=== PATIENT | male | born 1940 | race Caucasian/White ===

== ENCOUNTER 2018-05-30 21:28 | Inpatient (IN) | payer MEDICARE ==
[~2018-05-30 21:28] MED LIST: ISOVUE-370 76%-LOCM 1 ML ONE
[2018-05-30] MEDS ORDERED: niCARdipine 20MG In NaCl 20 MG/200 ML BAG ONE (21:54)
[2018-05-30 22:07] LABS: #Basophils 0.1 thou/uL (0.0-0.2); #Monocytes 0.6 thou/uL (0.11-0.59); #Neutrophils 4.5 thou/uL (1.40-6.50); %Basophils 0.8 % (0.0-1.0); %Eosinophils 0.3 % (0.0-10.0); %Lymphocytes 28.1 % (21.0-51.0); %Neutrophils 62.7 % (42.0-75.0); Hemoglobin 13.6 g/dL (14.0-18.0); Mean Corpuscular HGB CONC 34.4 g/dL (32.0-36.0); Mean Corpuscular Hemoglobin 33.5 pg (27.0-31.0); Mean Corpuscular Volume 97.4 fL (78.0-98.0); Mean Platelet Volume 8.3 fL (7.4-10.4); Platelet Count 163 thou/uL (130-400); RBC Distribution Width 12.1 % (11.5-14.5); Red Blood Cell (RBC) Count 4.07 mill/uL (4.70-6.10); White Blood Cell (WBC) Count 7.1 thou/uL (4.8-10.8)
[2018-05-30 22:13] LABS: INR-International Normal Ratio 1.1; Prothrombin Time 14.4 SEC (12.0-14.7)
[2018-05-30 22:14] LABS: PTT 30.5 SEC (22.9-36.1)
[2018-05-30 22:21] LABS: ALT (SGPT) 20 U/L (8-55); AST (SGOT) 29 U/L (5-34); Albumin 3.4 g/dL (3.4-4.8); Alkaline Phosphatase 57 U/L (40-150); Anion Gap 14 mmol/L (10-20); BUN (Urea Nitrogen) 25 mg/dL (8.4-25.7); Bilirubin, Total 1.2 mg/dL (0.2-1.2); CK (CPK) 466 U/L (30-200); Calc. Creatinine Clearance 0 mL/min (70-130); Calcium 8.8 mg/dL (7.8-10.44); Carbon Dioxide 20 mmol/L (23-31); Chloride 105 mmol/L (98-107); Estimated GFR-MDRD 55; Globulin 5.4 g/dL (2.4-3.5); Glucose 95 mg/dL (83-110); Potassium 4.1 mmol/L (3.5-5.1); Protein, Total 8.8 g/dL (5.8-8.1); Sodium 135 mmol/L (136-145)
[2018-05-30 22:24] LABS: Troponin I Less than 0.010 ng/mL (< 0.028)
[2018-05-30 22:27] LABS: CKMB 8.5 ng/mL (0-6.6)
[2018-05-30] MEDS ORDERED: Ondansetron HCl/PF 4 MG/2 ML Vial ONE (22:37)
--- NOTE | 2018-05-30 22:46 | CT ---
CT BRAIN WITHOUT CONTRAST CTA BRAIN WITH IV CONTRAST AND 3D POSTPROCESSING CTA NECK WITH IV CONTRAST AND 3D POSTPROCESSIN05/30/18 HISTORY: 78-year-old male with left sided weakness. FINDINGS: There are patchy areas of decreased attenuation in the periventricular white matter consistent with c hronic small vessel ischemic disease. The ventricular size is appropriate and the basilar cisterns pa tent. There is a dense right MCA sign on the noncontrasted study. No acute hemorrhage, midline shift, or abnormal extra-axial fluid collections are seen. There is occlusion of the right internal carotid artery at its origin also involving the intracranial course and the M1 segment of the right MCA. There is decreased blood flow in the right MCA territory indicative of an impending acute infarction. There is severe stenosis in the proximal left ICA close to the origin. Good flow is seen in the verte bral arteries and the basilar artery. A dominant right vertebral artery is present. IMPRESSION: 1. Right ICA and M1 segment of MCA occlusion with dense right MCA sign suspicious for an acute r ight MCA infarction. 2. High grade stenosis in the proximal left ICA. Discussed over the telephone with ER physician, Dr. Larry Leyva at 9:[address] Amari arevalo at 10:05 p.m. POS: [facility]
[2018-05-30] MEDS ORDERED: Propofol 1,000 MG/100 ML VIAL IV ONE (23:14)
--- NOTE | 2018-05-30 23:30 | CT ---
CT BRAIN WITHOUT CONTRAST: 05/30/18 HISTORY: CVA, post TPA, worsening headache. FINDINGS: There is intravascular contrast from recent administration. No interval development of intracranial h emorrhage is seen since earlier exam of 9:35 p.m. from the same date. No midline shift or abnormal ex tra-axial fluid collections are seen. No acute infarction is identified. IMPRESSION: No evidence of intracranial hemorrhage post TPA. POS: [facility]
[2018-05-30 23:46] LABS: Base Excess-Venous -0.9 mmol/L (0 (+/- 2.5)); Bicarbonate (HCO3v) 26.2 mmol/L (1.0-85.0); CO2 Tension (PvCO2) 51.7 mmHg (41.0-51.0); Calcium, Ionized 1.14 mmol/L (1.12-1.32); Hemoglobin - Calc 15.4 g/dL (12.0-18.0); Lactate 2.03 mmol/L (0.50-2.20); O2 Tension (PvO2) 63.5 mmHg (35.0-45.0); Potassium 5.2 mmol/L (3.4-4.7); T. Carbon Dioxide 27.8 mmol/L (1.0-85.0); pH (Venous) 7.313 (7.35-7.45); vO2 Saturation-calc 89.4 % (94-98)
--- NOTE | 2018-05-30 23:55 | RAD ---
PORTABLE CHEST ONE VIEW: 05/30/18 at 10:50 p.m. HISTORY: Respiratory failure. FINDINGS/IMPRESSION: There is an endotracheal tube with tip just below the level of the clavicular heads. The heart size i s normal. The lungs are well expanded without lobar consolidation, pneumothoraces or pleural effusion s. POS: [facility]
[2018-05-31] MEDS ORDERED: Fentanyl 100 MCG/2 ML VIAL ONE (00:15)
[2018-05-31] MEDS ORDERED: fentaNYL Citrate/PF 2,000 MCG in Sodium Chloride 0.9% 60 ML IV SCH (00:17)
[2018-05-31] MEDS ORDERED: Propofol 1,000 MG/100 ML VIAL IV ONE (03:55)
[2018-05-31] MEDS ORDERED: Lacri-Lube Opth Oint 3.5 GM TUBE EA EYE PRN (13:31)
[2018-05-31] MEDS ORDERED: Acetaminophen 650 MG Suppository PR PRN (15:37)
[2018-05-31] MEDS ORDERED: Acetaminophen 1,000 MG in Premix Bag 1 BAG IVPB SCH (15:45)
[2018-05-31] MEDS: Piperacillin/Tazobactam 3.375 GM in Sodium Chloride 0.9% 100 ML IVPB SCH (18:21)
--- NOTE | 2018-05-31 18:29 | PDOC.PULCN ---
<Michael Ladd - Last Filed: 05/31/18 18:25> Pulmonology Consult: HPI - Date of Consult Date: 05/31/18 Time: 09:45 - Consult Details Reason for Consult: Respiratory failure, CVA - History of Present Illness HPI: KAILYN FISCHER is a 78 year-old M 78 M w/o known PMH presents for acute onset left sided motor deficit. Pt was found to have stroke on initial CT imaging and no evidence of hemorrhage. Was given TPA in ED. He was also unable to protect airway and there was concern for aspiration pna and was subsequently intubated, started on [facility] ventilation and transfered to ICU. Pulmonology Consult: ROS - Review of Systems ROS unobtainable: due to endotracheal tube Pulmonology Consult: PMH Past Medical History: Unknown. - Social History Smoking Status: Unknown if ever smoked Pulmonology Consult: Meds - Medications MAR Reviewed: Yes Medications: Current Medications Acetaminophen (Tylenol) 650 mg [place] Q4H PRN PRN Reason: Headache/Fever or Pain Albuterol/Ipratropium (Duoneb) 3 ml NEB [id number] PRN PRN Reason: SOB &/or Wheezing Famotidine (Pepcid) 20 mg PER TUBE BID CARRIE Piperacillin Sod/Tazobactam (Sod 3.375 gm/ Sodium Chloride) 100 mls @ 200 mls/ hr IVPB Q6HR CARRIE Stop: 18 18:01 Last Admin: 05/31/18 18:21 Dose: 100 mls Acetaminophen 1,000 mg/ Device 100 mls @ 400 mls/hr IVPB NOW CARRIE Stop: 05/31/18 21:00 Last Admin: 05/31/18 16:21 Dose: 100 mls Mineral Oil/White Petrolatum (Lacri-Lube Ointment) 0 gm EA EYE PRN PRN PRN Reason: Dry Eyes - Allergies Allergies/Adverse Reactions: Allergies Allergy/AdvReac Type Severity Reaction Status Date / Time codeine Allergy Verified 05/31/18 00:17 Pulmonology Consult: PE - Physical Exam Deviation from normal: Intubated, unresponsive, off sedation HEENT: moist MMs, sclera anicteric Deviation from normal: Intubated, pupils sluggish but reactive and symmettric b/ l Neck: no JVD Cardiovascular: RRR, no significant murmur, no rub Respiratory: clear to auscultation bilaterally Gastrointestinal: soft, non-tender, no distention, positive bowel sounds Musculoskeletal: no edema, pulses present Deviation from normal: upward gaze preference, abnormal babinski LLE, minimal withdraw from pain Lymphatic: no nodes Deviation from normal: Unresponsive Skin: no rash, normal turgor, cap refill <2 seconds Pulmonology Consult: Results - Labs Result Diagrams: 05/30/18 21:59 05/30/18 21:59 - ABG Interpretation Attestation: I reviewed and interpreted this ABG. ABG Results: POC Bicarbonate Calc 26.2 mmol/L (1.0-85.0) 05/30/18 23:43 Interpretation: respiratory acidosis Pulmonology Consult: A/P - Problem (1) CVA (cerebral vascular accident) Current Visit: Yes Code(s): I63.9 - CEREBRAL INFARCTION, UNSPECIFIED Status : Acute (2) Respiratory failure requiring intubation Current Visit: Yes Code(s): J96.90 - RESPIRATORY FAILURE, UNSP, UNSP W HYPOXIA OR HYPERCAPNIA Status: Acute (3) CAP (community acquired pneumonia) Current Visit: Yes Code(s): J18.9 - PNEUMONIA, UNSPECIFIED ORGANISM Status: Acute - Time Time: 50% of the time was spent in coordination of care (as documented) at patient's floor/unit and/or counseling patient. Time with Patient: greater than 50 minutes - Plan Plan: 1) CVA: s/p TPA administration - pt has had worsening of neurological status since administration, cont neuro checks, consider repeat imaging - Neurosurg consulted - rare spont breathing off sedation - pt to remain off sedation, serial neuro checks 2) Respiratory failure: - 2/2 cva w/ concern for aspiration vs cap - IV zosyn ordered, cont - cont mechanical ventilation, pt to remain off sedation, serial neuro checks 3) CAP: vs aspiration - cont zosyn - cxr negative for consolidation <Neal Suarez - Last Filed: 06/05/18 08:33> Pulmonology Consult: HPI - History of Present Illness HPI: ROSITAFIFIADRIAYAZ RUTH is a 78 year-old M Pulmonology Consult: Meds - Medications Medications: Current Medications Acetaminophen (Tylenol) 325 mg [place] Q4H PRN PRN Reason: .FEVER Last Admin: 06/05/18 05:34 Dose: 325 mg Lorazepam (Ativan) 2 mg SLOW IVP Q15MIN PRN PRN Reason: Anxiety/Agitation Last Admin: 06/04/18 18:35 Dose: 2 mg Morphine Sulfate (Morphine) 2 mg SLOW IVP Q15MIN PRN PRN Reason: sob Last Admin: 06/05/18 08:25 Dose: 2 mg Pulmonology Consult: Results - Labs Result Diagrams: 06/02/18 03:27 06/02/18 03:27 - ABG Interpretation ABG Results: POC Bicarbonate Calc 26.2 mmol/L (1.0-85.0) 05/30/18 23:43 Pulmonology Consult: A/P - Time Time: 50% of the time was spent in coordination of care (as documented) at patient's floor/unit and/or counseling patient. Attending Addendum - Attending Addendum Date/Time: 05/31/18 1400 I personally evaluated the patient and discussed the management with Dr. Ladd. I agree with the History, Examination, Assessment and Plan documented above with any addition or exceptions noted below. Critical care time: 30 minutes.
[2018-05-31] MEDS: Sodium Chloride 0.9% 1,000 ML IV SCH (20:30)
[2018-05-31] MEDS ORDERED: Famotidine 40 MG/5 ML Oral Suspension PER TUBE SCH (21:00)
[2018-05-31] MEDS: Famotidine 20 MG TAB PER TUBE SCH (22:52)
[2018-05-31] MEDS ORDERED: Lorazepam 2 MG/ML VIAL SLOW IVP SCH (23:45)
[2018-05-31] MEDS ORDERED: levETIRAcetam In NaCl (Iso-Os) 1,000 MG in Premix Bag 1 BAG IVPB SCH (23:45)
[2018-05-31] MEDS ORDERED: hydrALAZINE 20 MG/ML VIAL SLOW IVP PRN (23:57)
[2018-06-01] MEDS: Piperacillin/Tazobactam 3.375 GM in Sodium Chloride 0.9% 100 ML IVPB SCH ×5 (00:09→23:29)
[2018-06-01] MEDS ORDERED: niCARdipine HCl 25 MG in Sodium Chloride 0.9% 250 ML 240 ML IVPB SCH (02:45)
[2018-06-01 08:21] LABS: ALT (SGPT) 21 U/L (8-55); AST (SGOT) 46 U/L (5-34); Albumin 3.2 g/dL (3.4-4.8); Alkaline Phosphatase 49 U/L (40-150); Anion Gap 12 mmol/L (10-20); BUN (Urea Nitrogen) 25 mg/dL (8.4-25.7); Bilirubin, Total 2.1 mg/dL (0.2-1.2); Calc. Creatinine Clearance 0 mL/min (70-130); Calcium 8.3 mg/dL (7.8-10.44); Carbon Dioxide 21 mmol/L (23-31); Chloride 109 mmol/L (98-107); Estimated GFR-MDRD 50; Globulin 4.8 g/dL (2.4-3.5); Glucose 115 mg/dL (83-110); Potassium 4.2 mmol/L (3.5-5.1); Sodium 138 mmol/L (136-145)
[2018-06-01 09:04] LABS: Band 6 % (5-11); Bite Cells SLIGHT = 2-5 cells (100X) (0-1/hpf); Hemoglobin 12.5 g/dL (14.0-18.0); Lymphocytes 13 % (21-51); MDiff Complete? YES; Mean Corpuscular HGB CONC 33.2 g/dL (32.0-36.0); Mean Corpuscular Hemoglobin 32.8 pg (27.0-31.0); Mean Corpuscular Volume 98.7 fL (78.0-98.0); Mean Platelet Volume 8.2 fL (7.4-10.4); Monocytes 5 % (0-10); Neutrophil 76 % (42-75); Platelet Count 169 thou/uL (130-400); RBC Distribution Width 12.2 % (11.5-14.5); Red Blood Cell (RBC) Count 3.82 mill/uL (4.70-6.10); White Blood Cell (WBC) Count 15.8 thou/uL (4.8-10.8)
[2018-06-01] MEDS: Famotidine 20 MG TAB PER TUBE SCH ×2 (09:22→21:53)
[2018-06-01] MEDS: Acetaminophen 325 MG/10.15 ML UDCUP PO SCH ×3 (11:00→21:55)
--- NOTE | 2018-06-01 11:06 | PRG ---
DATE OF SERVICE: 06/01/2018 SERVICE: Pulmonary Medicine. INTERVAL HISTORY: The patient is doing okay. Overnight, he had a shaking spell. There was fear that he could have represented seizure activity. As such , he was put on some antiepileptic drugs. He cannot provide any additional elements of the history. That being said, he is starting to spontaneously move the left leg. He has been moving the right leg spontaneously. He actually follows some simple commands with the right upper extremity. PHYSICAL EXAMINATION: VITAL SIGNS: T-max 100.4, pulse 70, blood pressure 140/53, respirations 24, saturation 93% on 27% FiO2 and a PEEP of 5. GENERAL: The patient is encephalopathic. HEENT: Normocephalic, atraumatic. Sclerae are white, conjunctivae pink. Oral mucosa is moist without lesions. LUNGS: Decent air entry. There is a prolonged expiratory phase, but no wheezing. No rhonchi or crackles are appreciated. HEART: Normal rate, regular. ABDOMEN: Soft, nontender and nondistended. Bowel sounds are positive. MUSCULOSKELETAL: No cyanosis or clubbing. There is no pitting in the bilateral lower extremities. NEUROLOGIC: He is spontaneously moving the right upper and lower extremities. He is following commands with the right upper extremity. He does not have a gag , but demonstrates an excellent cough with deep suctioning and is breathing on pressure support ventilation very comfortably. He has upgoing Babinski with a left lower extremity and does not withdraw from the left upper extremity. LABORATORY DATA: WBC 5.8, hemoglobin 12.5, platelets 169,000. INR 1.1. PH 7.31, pCO2 52 and pO2 63. Creatinine 1.36 and gently up trending. Basic metabolic profile and liver function studies are otherwise unremarkable. TSH falls within the normal limits. ASSESSMENT: 1. CVA of the right MCA. 2. Acute hypoxic respiratory failure. 3. Community acquired pneumonia secondary to overt aspiration. DISCUSSION AND PLAN: We will continue to hold sedation. The patient will stay on pressure support ventilation. Agree with antiepileptic drugs. I am going to schedule Tylenol, place OG and initiate tube feeds and change most of his medications over to p.o. provided that he tolerates a diet. Hopefully, today is the worst day from a neurologic standpoint and he will start to make a little bit more recovery through time. The patient's family was updated at bedside. CRITICAL CARE TIME: 30 minutes. JACOB
[2018-06-01] MEDS: Sodium Chloride 0.45% 1,000 ML IV SCH (12:01)
--- NOTE | 2018-06-01 13:58 | PDOC.PN ---
- Subjective Encounter Start Date: 06/01/18 Encounter Start Time: 13:45 Intubated. - Objective Vital Signs & Weight: Vital Signs (12 hours) Temp Pulse Resp Pulse Ox 06/01/18 12:00 20 06/01/18 10:45 70 06/01/18 08:00 100.1 F H 06/01/18 07:50 93 06/01/18 07:44 92 L 06/01/18 06:00 100.4 F H 06/01/18 04:00 21 H 06/01/18 02:05 79 Weight Admit Weight 179 lb 1.6 oz Weight 179 lb 1.6 oz Most Recent Monitor Data Heart Rate from ECG 71 NIBP 130/71 NIBP BP-Mean 90 Respiration from ECG 24 SpO2 95 I&O: 05/31/18 06/01/18 06/02/18 06:59 06:59 06:59 Intake Total 1942 Output Total 1650 340 Balance 292 -340 Result Diagrams: 06/01/18 07:12 06/01/18 07:12 Phys Exam - Physical Examination Constitutional: NAD Scattered rales, worse on the left. Cardiovascular: RRR, no significant murmur Gastrointestinal: soft, no distention, positive bowel sounds Musculoskeletal: no edema Moves right side well. Minimal wiggle of toes on left. Otherwise dense hemiplegia. Dx/Plan (1) Aspiration pneumonia Code(s): J69.0 - PNEUMONITIS DUE TO INHALATION OF FOOD AND VOMIT Status: Acute Comment: Zosyn. Witness aspiration with N/V after TPA administered. (2) CVA (cerebral vascular accident) Code(s): I63.9 - CEREBRAL INFARCTION, UNSPECIFIED Status: Acute Comment: Was not a candidate for mechanical extraction of clot. Had tPA. Still has some dense left hemiplegia. Will be able to better assess his residual defects when extubated. Moving right side well. Following commands. (3) Respiratory failure requiring intubation Code(s): J96.90 - RESPIRATORY FAILURE, UNSP, UNSP W HYPOXIA OR HYPERCAPNIA Status: Acute Comment: Pulmonology following. - Plan * Presented with CVA which was not amenable to clot extraction. Had tPA. Subsequent N/V with hematemesis and aspiration and respiratory failure. Pulm/ CC managing vent. Continue abx, starting nutrition. .
[2018-06-01] MEDS: Sodium Chloride 0.9% 1,000 ML IV SCH (23:31)
[2018-06-02 04:53] LABS: #Lymphocytes 1.6 thou/uL (1.20-3.40); #Monocytes 0.9 thou/uL (0.11-0.59); #Neutrophils 9.6 thou/uL (1.40-6.50); %Basophils 0.2 % (0.0-1.0); %Eosinophils 0.2 % (0.0-10.0); %Lymphocytes 13.3 % (21.0-51.0); %Monocytes 7.3 % (0.0-10.0); %Neutrophils 79.1 % (42.0-75.0); Hemoglobin 11.2 g/dL (14.0-18.0); Mean Corpuscular Hemoglobin 33.4 pg (27.0-31.0); Mean Corpuscular Volume 98.3 fL (78.0-98.0); Mean Platelet Volume 8.6 fL (7.4-10.4); Platelet Count 143 thou/uL (130-400); Red Blood Cell (RBC) Count 3.36 mill/uL (4.70-6.10); White Blood Cell (WBC) Count 12.1 thou/uL (4.8-10.8)
[2018-06-02 05:23] LABS: ALT (SGPT) 18 U/L (8-55); AST (SGOT) 47 U/L (5-34); Alkaline Phosphatase 56 U/L (40-150); Anion Gap 10 mmol/L (10-20); BUN (Urea Nitrogen) 25 mg/dL (8.4-25.7); Bilirubin, Total 1.8 mg/dL (0.2-1.2); Calc. Creatinine Clearance 53 mL/min (70-130); Calcium 8.3 mg/dL (7.8-10.44); Carbon Dioxide 21 mmol/L (23-31); Chloride 111 mmol/L (98-107); Estimated GFR-MDRD 55; Globulin 4.3 g/dL (2.4-3.5); Glucose 134 mg/dL (83-110); Potassium 3.8 mmol/L (3.5-5.1); Protein, Total 7.3 g/dL (5.8-8.1); Sodium 138 mmol/L (136-145)
[2018-06-02] MEDS: Piperacillin/Tazobactam 3.375 GM in Sodium Chloride 0.9% 100 ML IVPB SCH (05:55)
[2018-06-02] MEDS: Acetaminophen 325 MG/10.15 ML UDCUP PO SCH ×4 (05:55→21:45)
[2018-06-02] MEDS: Sodium Chloride 0.45% 1,000 ML IV SCH (06:00)
[2018-06-02] MEDS ORDERED: Labetalol HCl 100 MG/20 ML VIAL SLOW IVP PRN (08:58)
[2018-06-02] MEDS ORDERED: hydrALAZINE 20 MG/ML VIAL SLOW IVP PRN (08:59)
[2018-06-02] MEDS ORDERED: Pantoprazole 40 MG GRANULES PACKET PER TUBE SCH (09:30)
--- NOTE | 2018-06-02 09:56 | PRG ---
DATE OF SERVICE: 06/02/2018 SERVICE: Pulmonary Medicine. INTERVAL HISTORY: I find the patient a little bit more awake and alert this morning. He tries to op en up his eyes on commands. He is following commands with his right hand, in his right leg. That be ing said, he has a dense hemiparesis on the left side of his body. There has been no interval change to his condition otherwise. He had copious secretions coming out of his lungs. That being said, hi s systemic inflammatory response syndrome has not manifested terribly. PHYSICAL EXAMINATION: VITAL SIGNS: Afebrile currently with a T-max overnight of 100.4. Pulse 95, blood pressure 149/97, r espirations 31, saturation 98% on 27% FiO2 and a PEEP of 5. GENERAL: The patient is intubated. He is on no sedation. HEENT: Normocephalic, atraumatic. Sclerae are white, conjunctivae pink. Oral mucosa is moist witho ut lesions. LUNGS: Decent air entry. Extensive rhonchi are present. There is no prolonged expiratory phase or wheezing. HEART: Normal rate, regular. ABDOMEN: Soft, nontender, nondistended. Bowel sounds are positive. MUSCULOSKELETAL: No cyanosis or clubbing. There is no pitting in the bilateral lower extremities. NEUROLOGIC: Grossly nonfocal. LABORATORY DATA: WBC 12.1, hemoglobin 11.5, platelets 143,000. Chloride 111, bicarbonate 21. Basic metabolic profile is otherwise unremarkable. Total bilirubin 1.8. AST 47. LFTs are unremarkable o therwise. ASSESSMENT: 1. 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 2. Acute hypoxic respiratory failure, improving. 3. Community-acquired pneumonia secondary to overt aspiration. DISCUSSION AND PLAN: We will continue antibiotics, but limit him to a total duration of 5 days. We will keep him on mechanical ventilation. He is only on a little bit of pressure support. We will st ay away from any type of sedating medications. Physical therapy and occupational therapy will be inv olved. We will start getting him into a chair to mobilize as much as possible. Pulmonary Critical C are will continue to follow along. In the morning, we may give him a trial of extubation to see whet her or not he is capable of protecting his airway. CRITICAL CARE TIME: 30 minutes.
[2018-06-02] MEDS ORDERED: Scopolamine 1.5 mg/72 hour Patch TOP SCH (11:00)
--- NOTE | 2018-06-02 17:30 | PDOC.PN ---
- Subjective Encounter Start Date: 06/02/18 Encounter Start Time: 10:40 Intubated. Was up in chair for several hours this morning. - Objective Vital Signs & Weight: Vital Signs (12 hours) Temp Pulse Resp Pulse Ox 06/02/18 15:14 62 06/02/18 14:00 23 H 06/02/18 13:34 72 06/02/18 12:00 99.6 F 23 H 06/02/18 10:31 76 06/02/18 10:00 23 H 06/02/18 08:00 23 H 06/02/18 07:38 73 06/02/18 07:27 95 06/02/18 07:00 98.8 F 06/02/18 06:00 27 H Weight Admit Weight 179 lb 1.6 oz Weight 186 lb 8.177 oz Most Recent Monitor Data Heart Rate from ECG 68 NIBP 132/62 NIBP BP-Mean 85 Respiration from ECG 24 SpO2 95 I&O: 06/01/18 06/02/18 06/03/18 06:59 06:59 06:59 Intake Total 1942 2324 353 Output Total 1650 1175 360 Balance 292 1149 -7 Result Diagrams: 06/02/18 03:27 06/02/18 03:27 Phys Exam - Physical Examination Constitutional: NAD Intubated Respiratory: no wheezing, no rales, no rhonchi Cardiovascular: RRR, no significant murmur Gastrointestinal: soft, non-tender, no distention, positive bowel sounds Left forearm edema. Dx/Plan (1) Aspiration pneumonia Code(s): J69.0 - PNEUMONITIS DUE TO INHALATION OF FOOD AND VOMIT Status: Acute Comment: Zosyn. Witness aspiration with N/V after TPA administered. (2) CVA (cerebral vascular accident) Code(s): I63.9 - CEREBRAL INFARCTION, UNSPECIFIED Status: Acute Comment: Was not a candidate for mechanical extraction of clot. Had tPA. Still has some dense left hemiplegia. Will be able to better assess his residual defects when extubated. Moving right side well. Following commands. (3) Respiratory failure requiring intubation Code(s): J96.90 - RESPIRATORY FAILURE, UNSP, UNSP W HYPOXIA OR HYPERCAPNIA Status: Acute Comment: Pulmonology following. Hope to trial for extubation tomorrow. (4) Carotid stenosis, left Code(s): I65.22 - OCCLUSION AND STENOSIS OF LEFT CAROTID ARTERY Status: Acute Comment: Has high grade stenosis of the left ICA close to the origin. May need assessment once stable off the vent and neuro status established. Likely cannot do much now with the right occlusive process. - Plan * Continuing respiratory and nutritional support. Pulmonary/CC following. Will need to assess his neuro function once off of the vent and determine if he will be a candidate for rehab.
[2018-06-02] MEDS: Amoxicillin/Potassium Clav 875 MG TAB PO SCH (21:29)
[2018-06-02] MEDS: levETIRAcetam 500 MG TAB PO SCH (21:29)
[2018-06-03] MEDS: Acetaminophen 325 MG/10.15 ML UDCUP PO SCH (04:07)
[2018-06-03] MEDS: Amoxicillin/Potassium Clav 875 MG TAB PO SCH ×2 (10:06→21:13)
[2018-06-03] MEDS: levETIRAcetam 500 MG TAB PO SCH ×2 (10:06→21:13)
[2018-06-03] MEDS: Acetaminophen 650 MG/20.3 ML UDCUP PO SCH ×3 (10:06→22:27)
[2018-06-03] MEDS: Pantoprazole 40 MG GRANULES PACKET PER TUBE SCH (10:07)
--- NOTE | 2018-06-03 10:32 | PRG ---
DATE OF SERVICE: 06/03/2018 SERVICE: Pulmonary Medicine INTERVAL HISTORY: The patient is doing great from a respiratory standpoint. Neurologically, however , he is not doing so well. He continues to move his right upper and lower extremity to command. He is now moving his left upper extremity with noxious stimuli. That being said, he is still not doing much with the left lower extremity, continues to have persistent upper motor neuron lesion signs ther e. Otherwise, there has been no interval change to his condition. He has absolutely no gag. He webster s have a cough, but is fairly anemic. Nursing reports no overnight events. PHYSICAL EXAMINATION: VITAL SIGNS: Afebrile currently. His T-max overnight was 100.5. Blood pressure 148/56, heart rate 56, respirations 15, saturation 94% on 23% FiO2 and a PEEP of 5. GENERAL: The patient is awake and alert. No apparent distress. LUNGS: Decent air entry. There is no prolonged expiratory phase or wheezing present. HEART: Normal rate, regular. ABDOMEN: Soft, nontender, nondistended. Bowel sounds are positive. MUSCULOSKELETAL: No cyanosis or clubbing. There is no pitting in the bilateral lower extremities. NEUROLOGIC: Grossly nonfocal. LABORATORY DATA: WBC 12.1, hemoglobin 11.2, platelets 143,000. INR 1.1. Basic metabolic profile is completely unremarkable except for an up trending chloride. Creatinine is down trending to 1.27. T otal bilirubin 1.8. AST and ALT are stable. ASSESSMENT: 1. Cerebrovascular accident of the right middle cerebral artery with dense left-sided hemiparesis/pl egia. 2. Acute hypoxic respiratory failure, resolving. 3. Community-acquired pneumonia secondary to overt aspiration. DISCUSSION AND PLAN: I do not believe the patient will be able to protect his airway when we extubat e him. As such, I will call a surgeon for tracheostomy and PEG tube placement. We will consult case management to work on placement issues. It appears that he is tolerating tube feeds just fine. He is also resolving his inflammatory cascade very nicely. He continues to have a fever, but I believe this is of neurologic origin given that it started on day 1. Pulmonary Critical Care will continue t o follow along in this location.
--- NOTE | 2018-06-03 10:52 | HP ---
PRIMARY CARE PHYSICIAN: Out of town physician. CODE STATUS: FULL CODE. TIME OF EVALUATION: 12:35 a.m. CHIEF COMPLAINT: The patient suddenly collapsed. HISTORY OF PRESENT ILLNESS: This is an 78-year-old male patient with past medical history of COPD, C IDP came to the hospital after being in a reunion with some friends and all of a sudden the patient j ust started with sudden onset of change in mental status around 8:00 p.m. and there were some doctors in the room and they assessed the patient and found that he had left-sided hemiparesis and slurred s peech. EMS was called. EMS was transferred the patient to the hospital and was diagnosed with acute stroke and a CT angio was found that the patient has a large carotid artery thrombus that was not am enable to any surgical intervention on the right side and therefore decision was made to give the pat ient tPA. While the patient was given tPA and finishing the medication, patient is noted with some c omplaints of agitation and very more confused, been unable to protect airway and he was throwing up a nd possibly an episode of aspiration and the patient was intubated and then transferred to the ICU. PAST MEDICAL HISTORY: Mentioned in the HPI as reported by . PAST SURGICAL HISTORY: Patient has a knee replacement. PSYCHIATRIC HISTORY: No psych problems reported. SOCIAL HISTORY: The patient lives with . ALLERGIES: CODEINE. MEDICATIONS: Unable to fully obtain. REVIEW OF SYSTEMS: Unable to obtain. The patient was intubated by the time I examined the patient. PHYSICAL EXAMINATION: VITAL SIGNS: On presentation, blood pressure was very elevated occasionally with systolic in the 200 s and diastolic in the 113, needing Cardene drip for decrease in blood pressure. Given the tPA that had been given. The heart rate is 72, respiratory rate was 22. GENERAL APPEARANCE: The patient was intubated, sedated, needing propofol for optimal sedation. HEENT: Eyes: Normal conjunctivae. Moist oral mucosa. Anicteric. Pupils were fixed. RESPIRATORY: Bilateral air entry. No rales, no wheezing. Symmetrical expansion. CARDIOVASCULAR: The patient was tachycardic, hypertensive. No murmurs, no gallops or edema. ABDOMEN: Soft. Normal bowel sounds. MUSCULOSKELETAL: Baseline range of motion and strength. No tenderness. SKIN: Warm and intact. No perineal rash. The patient has some spotty chemosis that is per , th is is due to aspirin. EXTREMITIES: Peripheral pulses were present. Capillary refill seems to be intact. NEUROLOGIC: Unable to fully expose, the patient adequately sedated since the patient has left side w eakness. PSYCHIATRIC: Unable to explore. LABORATORY DATA: EKG. The patient has that shows normal sinus rhythm in the rate of 75. T wa ves were normal. It was discussed with the performing physician from ER Radiology. The patient has a CT head that showed right middle cerebral artery and internal carotid artery occlusion. The result s were reviewed. The patient has white count 7.1, hemoglobin 13.6, MCV 97, platelet count 163. Coag ulation was negative. A blood gas ABG was done 7.31, pCO2 of 51 with oxygen 63. The chemistry: The sodium was 135, potassium 4.1, chloride 105, carbon dioxide was 20, anion gap was 14, creatinine 1.2 . Lactic acid was normal. Calcium 8.8. LFTs were negative. CK 466. Troponin was less than 0.010. Serum total protein 8.8 with albumin 3.4. ASSESSMENT AND PLAN: The patient was placed in the hospital with following medical problems: 1. Ischemic stroke seen on CT angio. The patient has a significant occlusive thrombus in the right middle cerebral artery and right internal carotid artery, not amenable for surgery as per neurosurger y evaluation recommendation from Dr. Guzmán, the patient has received tPA, patient became agitated, un able to protect airway, was intubated, will do the rest of the stroke protocol, will follow consultan ts' recommendation. 2. Ischemic stroke status post tPA, will follow protocol for post-tPA treatment, we will control blo od pressure, will place in ICU. 3. Hypertensive emergency, presenting with a stroke with very high blood pressure, patient was place d on Cardene drip and sedation, we have controlled the blood pressure to at least bring it down to 15 0s systolic, we will monitor for any bleeding. The patient had some oral bleeding after intubation, that has resolved in the mouth. 4. Possible aspiration pneumonia, patient started throwing up while getting tPA and looks as had an episode of aspiration with hypoxia and the reason why he was intubated, placed on Zosyn, we will charissa tor, we will adjust treatment as needed. 5. Acute hypoxic respiratory failure secondary to aspiration pneumonia leading to intubation, we hav e consulted pulmonary, we will follow recommendations. 6. Deep venous thrombosis prophylaxis. The patient received tPA.
--- NOTE | 2018-06-03 21:31 | PDOC.PN ---
- Subjective Encounter Start Date: 06/03/18 Encounter Start Time: 12:20 Intubated. - Objective Vital Signs & Weight: Vital Signs (12 hours) Temp Pulse Pulse Pulse Resp BP BP 06/03/18 18:24 66 154/59 H 06/03/18 16:00 26 H 06/03/18 14:11 55 L 124/66 06/03/18 12:00 98.3 F 06/03/18 10:34 61 156/63 H 06/03/18 10:32 57 L 156/63 H 06/03/18 09:40 64 BP Pulse Ox Pulse Ox 06/03/18 18:24 06/03/18 16:00 06/03/18 14:11 06/03/18 12:00 06/03/18 10:34 06/03/18 10:32 97 06/03/18 09:40 156/63 H 98 Weight Admit Weight 179 lb 1.6 oz Weight 184 lb 4.903 oz Most Recent Monitor Data Heart Rate from ECG 57 NIBP 124/55 NIBP BP-Mean 78 Respiration from ECG 26 SpO2 93 I&O: 06/02/18 06/03/18 06/04/18 06:59 06:59 06:59 Intake Total 2324 2094 848 Output Total 1175 1295 450 Balance 1149 799 398 Result Diagrams: 06/02/18 03:27 06/02/18 03:27 Phys Exam - Physical Examination Constitutional: NAD Respiratory: no wheezing, no rales, no rhonchi Cardiovascular: RRR, no significant murmur Gastrointestinal: soft, no distention, positive bowel sounds Musculoskeletal: no edema Left forearm edema has become more evidently hematoma. Skin: no rash Dx/Plan (1) Aspiration pneumonia Code(s): J69.0 - PNEUMONITIS DUE TO INHALATION OF FOOD AND VOMIT Status: Acute Comment: Zosyn. Witness aspiration with N/V after TPA administered. (2) CVA (cerebral vascular accident) Code(s): I63.9 - CEREBRAL INFARCTION, UNSPECIFIED Status: Acute Comment: Was not a candidate for mechanical extraction of clot. Had tPA. Still has some dense left hemiplegia. Will be able to better assess his residual defects when extubated. Moving right side well. Following commands. (3) Respiratory failure requiring intubation Code(s): J96.90 - RESPIRATORY FAILURE, UNSP, UNSP W HYPOXIA OR HYPERCAPNIA Status: Acute Comment: Pulmonology following. Has not recovered adequate neuro function. Concern for airway protection. Surgery consulted for trach. (4) Carotid stenosis, left Code(s): I65.22 - OCCLUSION AND STENOSIS OF LEFT CAROTID ARTERY Status: Acute Comment: Has high grade stenosis of the left ICA close to the origin. May need assessment once stable off the vent and neuro status established. Likely cannot do much now with the right occlusive process. - Plan * Will likely get trach and then work on placement with CM.
--- NOTE | 2018-06-04 01:14 | HP ---
HISTORY OF PRESENT ILLNESS: A 78-year-old male patient suffered a stroke with severe neurological de ficit, suffering a right ICA M1 segment MCA occlusion with a dense left hemiparalysis. He was admitt ed by Hospitalist required ventilation. Dr. Suarez has asked me to see him regarding placement of a PEG tube and tracheostomy tube. I have tentatively scheduled that for tomorrow. Family, however, w ants to discuss this further with Dr. Suarez. We will keep him n.p.o. and if the family is agreeabl e, we will plan tracheostomy and PEG tube tomorrow. The patient lives with his . ALLERGIES: CODEINE. TOBACCO: None. ALCOHOL: None. PAST HISTORY: Not obtainable. MEDICATIONS AT HOME: Losartan. PHYSICAL EXAMINATION: VITAL SIGNS: 5 feet 10 inches, 184 pounds, 26 BMI, 66, 154/59. GENERAL: Patient is on the ventilator. He is sedated. He is not responsive at this time. LUNGS: Coarse rhonchi. CARDIAC: Regular rate and rhythm. ABDOMEN: Soft, nontender. EXTREMITIES: Unremarkable. LABORATORY DATA: White count 12, hemoglobin 11.1. Basic metabolic profile unremarkable. ASSESSMENT AND PLAN: Devastating stroke. Prognosis poor. PLAN: Tracheostomy and PEG tube if the family desires tomorrow. We will await their decision.
[2018-06-04] MEDS: Acetaminophen 650 MG/20.3 ML UDCUP PO SCH ×2 (03:59→09:00)
[2018-06-04] MEDS: levETIRAcetam 500 MG TAB PO SCH (09:00)
[2018-06-04] MEDS: Pantoprazole 40 MG GRANULES PACKET PER TUBE SCH (09:00)
[2018-06-04] MEDS: Amoxicillin/Potassium Clav 875 MG TAB PO SCH (09:00)
--- NOTE | 2018-06-04 11:29 | PRG ---
DATE OF SERVICE: 06/04/2018 SUBJECTIVE: Prakash Edwards is doing well today. He is on the ventilator. I have spoken wit h his . They do not want a tracheostomy and PEG. They want palliative hospice measures and want extubation. They are waiting for family to come in. We will cancel his operative procedure. I hav e offered to talk with the family if they so desire later. They have a meeting with Dr. Suarez this morning.
[2018-06-04] MEDS ORDERED: Lorazepam 2 MG/ML VIAL ONE (12:39)
--- NOTE | 2018-06-04 13:07 | PRG ---
DATE OF SERVICE: 06/04/2018 SERVICE: Pulmonary Medicine. INTERVAL HISTORY: I have talked to the patient's family today. They have changed their mind. They do not want to pursue PEG tube or tracheostomy. The patient's looked through his living will an d it suggested that under no circumstances would he want to live on ventilators or have feeding tubes placed. This is based on what the is telling me. As such, she has asked that we terminally ex tubate the patient today. She appreciates that it means that he will be passing away over the next c ouple of days if not weeks. PHYSICAL EXAMINATION: VITAL SIGNS: Afebrile, pulse 65, blood pressure 159/68, respirations 29, saturation 100% on 23% FiO2 . GENERAL: The patient is intubated. He is under no influence of sedation. He will follow some simpl e commands, but remains fairly sedate. HEENT: Normocephalic, atraumatic. Sclerae are white. Conjunctivae are pink. Oral mucosa is moist without lesions. LUNGS: Excellent air entry. There is no prolonged expiratory phase or wheezing present. HEART: Normal rate, regular. ABDOMEN: Soft, nontender, nondistended. Bowel sounds are positive. MUSCULOSKELETAL: No cyanosis or clubbing. There is no pitting in the bilateral lower extremities. NEUROLOGIC: He continues to follow commands in the right upper and lower extremity. He will spontan eously move the left upper extremity. The left lower extremity has upper motor neuron lesions. He h as a better cough and gag today. LABORATORY DATA: WBC 12.1, hemoglobin 11.2, platelets 143,000. ASSESSMENT: 1. Cerebrovascular accident of the right middle cerebral artery with dense left-sided hemiplegia/par alysis. 2. Acute hypoxic respiratory failure, improving. 3. Community-acquired pneumonia secondary to overt aspiration. DISCUSSION AND PLAN: The patient's family has reflected. They decided that the patient would not li ke to live in a permanently debilitated state. As such, they are requesting that we transition over to comfort only. I have talked to them today about how we will not be able to predict the severity o f his brain injury after about 6 weeks to 2 months. They are suggesting that he was having a hard ti me getting around as was and feel that if he could not get around successfully that he would define t hat it is poor quality of life. As such, we are going to make the transition over to comfort care ba sed on the family's request. All antibiotics and medications will be discontinued. We will give him morphine and Ativan for comfort. When the patient's family is ready, he will be terminally extubate d. CRITICAL CARE TIME: 30 minutes.
[2018-06-04 14:55] VITALS: BMI 26.4
--- NOTE | 2018-06-04 18:04 | PRG ---
DATE OF SERVICE: 06/04/2018 SUBJECTIVE: The patient is nonverbal. He had a terminal extubation today. Subsequently, he has remained fairly steady with stable vital signs. OBJECTIVE: VITAL SIGNS: Respiratory rate is 23, O2 sats 98% with some nasal cannula, blood pressure is 140s/60s. HEART: Regular. LUNGS: Have scattered rales. EXTREMITIES: No edema. IMPRESSION AND PLAN: Large cerebrovascular accident with left hemiplegia, loss of gag reflex and semiconscious state. The patient has been interesting in that he has been able to use his right hand to follow commands while intubated and has not ever come to full level of consciousness. However, he was able to indicate to his family today that he wanted the tube out and he had made it clear to them and thoroughly documented it in a living will. He was not interested in artificial long-term life support such as a trach or a PEG tube. He subsequently had the terminal extubation today and he continues with morphine and Ativan to be used as needed. I had a long conversation with the patient's son and the patient's today. The patient's son had many questions regarding the plan going forward if the patient were to remain semi- stable as to whether we would find ways to give him hydration or nutrition. The patient's believes that the whole idea of the terminal extubation was to not prolong his situation or suffering. Ultimately, we agreed that we would continue to keep him comfortable for now. If he continues to support himself and have stable vital signs tomorrow, we can have a conversation again and day by day determine what if any interventions to pursue other than purely comfort measures and palliative measures. I will consult palliative care team as well. JACOB
--- NOTE | 2018-06-04 18:10 | PRG ---
DATE OF SERVICE: 06/04/2018 The patient has a major stroke with left hemiplegia, loss of gag reflex, and ultimately was extubated today. There were some concerns regarding the plan of care regarding managing the patient going for evans now. I had a long conversation with the patient's son and his regarding the plan going for evans. I made it clear that the patient had a prior living will that was specified that he did not wa nt long-term life support measures such as tracheostomy. He is on a ventilator and PEG tubes. Howev er, now there is a bit of a discrepancy between the patient's 's concerns and the patient's son's concerns. The patient's son is somewhat focused on how we would manage hydration and nutrition if t he patient continues to maintain his self over the next couple of days. The patient's had no co mplaints of any further interventions regardless in keeping with what she believes are his wishes. U ltimately, we agreed to continue to monitor the situation day by day, even hour by hour, and we ke nued to have these discussions and pivot as we need to. We will also get the patient out of the ICU and move them to the floor, so that the patient's family could be more comfortable and we will also a sk palliative care to consult on the patient. Total time in advance care planning was 26 minutes.
[2018-06-04] MEDS: Lorazepam 2 MG/ML VIAL SLOW IVP PRN (18:35)
[2018-06-04] MEDS: Acetaminophen 325 MG Suppository PR PRN (18:59)
[2018-06-05] MEDS: Acetaminophen 325 MG Suppository PR PRN ×4 (01:32→19:46)
--- NOTE | 2018-06-05 10:35 | PRG ---
DATE OF SERVICE: 06/05/2018 SUBJECTIVE: The patient is nonverbal. I spoke to the patient's at length. She feels like the patient is not getting adequate medications for pain or anxiety. Went a bit longer during the night which was about 3 hours and she felt like that was probably too long of an interval, but that has bee n well communicated and improved. OBJECTIVE: VITAL SIGNS: T-max is 102.2. Respirations currently at 14, BP 127/57. GENERAL: The patient is nonresponsive. He has somewhat agonal breathing. HEART: Regular, without murmurs, not tachycardic. LUNGS: Difficult to assess because he has some upper airway noise, but sound generally clear. ABDOMEN: Soft. IMPRESSION AND PLAN: Status post large cerebrovascular accident with left hemiplegia and loss of gag reflex. The patient was terminally extubated yesterday. Today we are continuing with morphine and benzodiazepines as needed to keep the patient comfortable. Asking Palliative Care to see the patient today. I had a long discussion with the patient's and able to answer all of her questions. Ul timately, she feels quite good about the decisions that she has made and where they are and feels ve ry confident that they are completely in line with the patient's wishes for himself. We will continu e our current plan.
[2018-06-06 08:14] VITALS: BP 148/67; TEMP 99.9
[2018-06-06] MEDS: Lorazepam 2 MG/ML VIAL SLOW IVP PRN (08:32)
[2018-06-06] MEDS ORDERED: Scopolamine 1.5 mg/72 hour Patch TD SCH (09:15)
--- NOTE | 2018-06-06 09:37 | PRG ---
DATE OF SERVICE: 06/06/2018 SUBJECTIVE: The patient is unresponsive. I spoke to the patient's . He has been struggling wit h some additional secretions. I spoke to the nurse. The patient has been getting the morphine about every 3 hours through the night. He is requiring it now about every hour. PHYSICAL EXAMINATION: VITAL SIGNS: T-max is 102.3. Temperature 99.9, pulse 60, respirations 20, O2 sat 100% on 2 liters, BP is 148/67. GENERAL: The patient is not responsive. He does have some spontaneous movement of his right hand at times. He is deep breathing. This is a fair amount of upper airway secretions that are audible on auscultation. IMPRESSION: Status post large right ischemic cerebrovascular accident with left hemiplegia, loss of gag reflex. The patient is facing the options of a tracheostomy and PEG tube placement versus pallia tive care and family opted for palliative care approach based on his expressed wishes. The patient h as been dealing with some labored breathing since his extubation which is being managed with palliati ve measures such as morphine and Ativan. At this point, he seems to be requiring it more often and a t present is going to need it even a bit more often than that. I discussed with nursing and they are going to be assessing him more frequently and administering medications as needed. I am also going to add scopolamine patch in order to try to dry up some of these secretions and make him more comfort able. Palliative Care Team did visit with the patient yesterday and discussed the options of hospice if the patient was surviving to today. I believe that is a perfectly reasonable consideration.
== END 2018-06-06 12:46 | disposition hospice, inpatient (51) | DRG 61 ==
LOC: ERS 21:28 → CCU 05-31 01:08 → 2SE 06-04 17:39
PROVIDERS: ADMIT Hospitalist; ATTEND Hospitalist
PROC: 5A1955Z Respiratory Ventilation, Greater than 96 Consecutive Hours (ICD-10-PCS; principal; 2018-05-31)
PROC: 3E03317 Introduction of Other Thrombolytic into Peripheral Vein, Percutaneous Approach (ICD-10-PCS; 2018-05-31)
PROC: 0BH17EZ Insertion of Endotracheal Airway into Trachea, Via Natural or Artificial Opening (ICD-10-PCS; 2018-05-31)
DX: I63.511 Cerebral infarction due to unspecified occlusion or stenosis of right middle cerebral artery (principal); I63.031 Cerebral infarction due to thrombosis of right carotid artery; J69.0 Pneumonitis due to inhalation of food and vomit; J96.01 Acute respiratory failure with hypoxia; G81.94 Hemiplegia, unspecified affecting left nondominant side; G61.81 Chronic inflammatory demyelinating polyneuritis; I16.1 Hypertensive emergency; R47.81 Slurred speech; J44.9 Chronic obstructive pulmonary disease, unspecified; Z51.5 Encounter for palliative care; R29.717 NIHSS score 17
CPT/HCPCS: 36415; 70450; 70496; 70498; 71045; 80053; 82330; 82550; 82553; 82803; 83605; 84443; 84484; 85007; 85025; 85027; 85610; 85730; 93005; 94002; 94003; G8978-GP-CN; G8979-GP-CL; G8987-GO-CM; G8988-GO-CK; G9162-GN-CN; G9163-GN-CK; J0131; J1953; J2060; J2270; J2405; J2543; J2704; J2997; J3010; J7050